=== PATIENT | male | born 1995 | race African-American/Black ===

== ENCOUNTER 2016-11-30 21:02 | Emergency (ER) | payer OTHER ==
[~2016-11-30] VITALS: Ht 167.6 cm; Wt 74.8 kg
[~2016-11-30 21:02] MED LIST: NAPR500T8 PO
[2016-11-30 21:40] VITALS: BP 135/74
[2016-11-30] MEDS ORDERED: LIDOCAINE 1%/EPI 1:100,000 20 ML VIAL. IJ ONE (22:30)
--- NOTE | 2016-11-30 22:45 | PHYS DOC ---
Past History Past Medical History: No Pertinent History Past Surgical History: No Surgical History Alcohol Use: None Drug Use: None Adult General Chief Complaint Chief Complaint: HAND PROBLEM HPI HPI Patient is a 21 year old M who presents with laceration to his left hand over the second MCP joint on the palm. Patient is left-hand dominant. 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 Patient sustained no other injuries. This occurred prior to arrival. Tetanus is up-to-date Pertinent exam findings: 1 cm laceration on the left hand on the palmar surface over the second MCP joint , superficial ED course: Patient was seen and evaluated and laceration was sewn in the emergency room MDM: After reviewing the chart, CC/HPI/PMH, physical exam, I do not believe the patient sustained a limb threatening laceration warranting further workup and/ or admission at this time. 3 simple interrupted sutures were placed in the laceration and is recommended patient follow-up with his PCP in 7-10 days for suture removal and watch for signs of infection. At this time the patient does not need antibiotics. Patient is stable for discharge. Additional verbal discharge instructions were provided to the patient and that if symptoms get worse or any new symptoms arise that are worrisome to the patient he is to return to the emergency room immediately Review of Systems Review of Systems GEN: Denies fevers, chills, sweats HEENT: Denies blurred vision, sore throat CV: Denies chest pain RESP: Denies shortness of air, cough GI: Denies n/v/d NEURO: Denies confusion, dizziness MSK: Left hand laceration Current Medications Current Medications Current Medications Medications (Trade) Dose Ordered Sig/Kol[place] Start Time Stop Time Status Last Admin Dose Admin Lidocaine/ Epinephrine (Xylocaine 1%-Epi 1:100,000) 20 ml 1X ONCE 11/30/16 22:30 11/30/16 22:32 DC Allergies Allergies Allergies Coded Allergies Type Severity Reaction Last Updated Verified No Known Drug Allergies 05/24/16 No Physical Exam Physical Exam GEN.: No apparent distress. Alert and oriented. HEENT: Head is normocephalic, atraumatic NECK: Supple. LUNGS: CTAB. HEART: RRR, S1, S2 present. Peripheral pulses intact ABDOMEN: Soft, nontender. Positive bowel sounds. EXTREMITIES: Without any cyanosis. NEUROLOGIC: Normal speech, normal tone PSYCHIATRIC: Normal affect, normal mood. SKIN: 1 cm laceration on the left hand on the palmar surface over the second MCP joint, superficial EKG EKG [] Radiology/Procedures Radiology/Procedures Indication: Left hand laceration Procedure: The patient was placed in the appropriate position and anesthesia around the laceration one percent lidocaine with epi. The area was then cleansed. The laceration was and closed with 3 interrupted sutures of 5-0 nylon. The wound area was then dressed and bandaged. Total repaired wound length: 1 cm. Other Items: none The patient tolerated the procedure [TOLERATED]. Complications: None.[] Course & Med Decision Making Course & Med Decision Making Pertinent Labs and Imaging studies reviewed. (See chart for details) [] Dragon Disclaimer Dragon Disclaimer This chart was dictated in whole or in part using Voice Recognition software in a busy, high-work load, and often noisy Emergency Department environment. It may contain unintended and wholly unrecognized errors or omissions. Departure Departure: Impression: Primary Impression: Hand laceration Disposition: 01 HOME, SELF-CARE Condition: IMPROVED Referrals: BALTA DE LEON MD (PCP) Patient Instructions: Fingertip Laceration Additional Instructions: Please follow up with her family doctor in 7-10 days to have the sutures removed and please watch for signs of infection and if you see signs of infection please return immediately to the emergency room Problem Qualifiers Primary Impression: Hand laceration Encounter type: initial encounter Foreign body presence: without foreign body Laterality: left Qualified Codes: S61.412A - Laceration without foreign body of left hand, initial encounter FARIDEH CARDENAS DO Nov 30, 2016 22:45
== END 2016-11-30 22:47 | disposition home or self-care (01) ==
LOC: ER 21:02
DX: S61.412A Laceration without foreign body of left hand, initial encounter (principal); W26.0XXA Contact with knife, initial encounter; Y93.89 Activity, other specified; Y99.8 Other external cause status; Y92.89 Other specified places as the place of occurrence of the external cause
CPT/HCPCS: 12001; 99283-25